=== PATIENT | male | born 1995 | race Hispanic/Latino ===

== ENCOUNTER 2025-10-23 17:41 | Emergency (ER) | payer SELFPAY ==
[2025-10-23] MEDS ORDERED: Ibuprofen 800 MG TAB ONE (18:18)
== END 2025-10-23 18:37 | disposition home or self-care (01) ==
LOC: MADERS 17:41
DX: J10.1 Influenza due to other identified influenza virus with other respiratory manifestations (principal)
CPT/HCPCS: 87081; 87428; 87430; 99283